=== PATIENT | female | born 1940 | race Two or more races ===

== ENCOUNTER 2019-03-17 05:10 | Day surgery (SDC) | payer OTHER ==
[~2019-03-17 05:10] MED LIST: MULTI VITAMIN1 EACH PO
[2019-03-17] MEDS ORDERED: MACROBID 100 M100 MG PO (10:42)
[2019-03-17] MEDS ORDERED: ULTRACET PO (10:42)
== END 2019-03-17 13:00 | disposition home or self-care (01) ==
LOC: CIR.AMB 05:10
DX: N81.3 Complete uterovaginal prolapse (principal)